=== PATIENT | male | born 1975 | race Caucasian/White ===

== ENCOUNTER 2017-04-18 09:22 | Observation (INO) | payer OTHER ==
[~2017-04-18] VITALS: Ht 170.2 cm; Wt 115.6 kg
[~2017-04-18 09:22] MED LIST: FLEXERIL 1010 MG/TAB PO; MOTRIN 200200 MG/TAB PO; MULTIPLE VITAMI1 CAP PO; NEURONTIN300 MG/CAP PO; NORCO 325 MG-101 TAB PO; TYLENOL PM EXTR1 TA1 PO
[2017-04-18] MEDS ORDERED: LYRICA 150MG C150 MG PO (09:35)
[2017-04-18] MEDS ORDERED: CYMBALTA 60MG60 MG PO (09:36)
[2017-04-18 09:47] LABS: BASO # 0.1 (0.0-0.2); BASO % 1.1 % (0.0-2.0); EOS # 1.1 (0.0-0.7); EOS % 11.9 % (0-4.0); GRAN % 42.7 % (42.2-75.2); HEMATOCRIT 39.1 % (42.0-52.0); HEMOGLOBIN 13.3 g/dl (13.5-18.0); LYMPH # 3.2 (1.2-3.4); LYMPH % 34.3 % (20.0-51.0); MEAN CELL VOLUME 89 fl (80.0-100.0); MEAN CORPUSCULAR HEMOGLOBIN 30 pg (27.0-31.0); MEAN CORPUSCULAR HGB CONC 34 g/dl (33.0-37.0); MEAN PLATELET VOLUME 9.1 fl (7.4-10.4); MONO # 0.9 (0.1-0.6); MONO % 9.8 % (1.7-9.3); PLATELET COUNT 362 K/mm3 (130-400); REDCELL DISTRIBUTION WIDTH-CV 13.9 % (11.5-14.5); WHITE BLOOD COUNT 9.3 K/mm3 (4.8-10.8)
[2017-04-18 09:56] LABS: ADJUSTED CALCIUM 8.6 mg/dL (8.4-10.2); ALANINE AMINOTRANSFERASE 105 U/L (21-72); ALBUMIN 4.5 gm/dL (3.5-5.0); ALKALINE PHOSPHATASE 104 U/L (50-136); ANION GAP 13 mmol/L (7-16); BILIRUBIN,TOTAL 0.5 mg/dL (0.0-1.0); BLOOD UREA NITROGEN 11 mg/dL (9-20); CARBON DIOXIDE 25 mmol/L (22-30); CHLORIDE 97 mmol/L (98-107); CREATININE, serum 0.88 mg/dL (0.66-1.25); GLUCOSE 123 mg/dL (74-106); MAGNESIUM 2.2 mg/dL (1.6-2.3); POTASSIUM 4.1 mmol/L (3.4-5.0); SODIUM 136 mmol/L (137-145); TOTAL PROTEIN 7.5 gm/dL (6.4-8.2)
[2017-04-18 10:13] LABS: PROLACTIN 28.4 ng/mL (3.7-17.9)
[2017-04-18 13:12] LABS: PHOSPHOROUS 3.2 mg/dL (2.5-4.5)
[2017-04-18 13:14] LABS: ACETAMINOPHEN < 10 ug/mL (10-30)
[2017-04-18 14:30] VITALS: BP 108/98; PULSE 95; TEMP 98.3
[2017-04-18 16:18] LABS: PH 5 (5-8); SQUAMOUS EPITHELIAL None Seen /hpf; URINE APPEARANCE Clear; URINE BACTERIA None Seen /hpf; URINE BILIRUBIN Negative (NEGATIVE); URINE BLOOD Negative (NEGATIVE); URINE COLOR Yellow; URINE GLUCOSE Negative (NEGATIVE); URINE KETONE Negative (NEGATIVE); URINE RBC 0-2 /hpf; URINE UROBILINOGEN Negative (NEGATIVE); URINE WBC 0-2 /hpf
[2017-04-18 16:21] LABS: AMPHETAMINE URINE NEGATIVE; BARBITURATES URINE NEGATIVE; BENZODIAZEPINES URINE POSITIVE; BUPRENORPHINE URINE NEGATIVE; METHADONE URINE NEGATIVE; OPIATES URINE NEGATIVE; OXYCODONE URINE NEGATIVE; PHENCYCLIDINE URINE NEGATIVE; PROPOXYPHENE URINE NEGATIVE; THC CANNABINOIDS URINE NEGATIVE
[2017-04-18 20:37] VITALS: BP 107/55; PULSE 85; TEMP 98
[2017-04-19 00:37] VITALS: BP 90/42; PULSE 81; TEMP 98.2
[2017-04-19 04:32] VITALS: BP 98/44; PULSE 79; TEMP 100.6
[2017-04-19 04:52] VITALS: TEMP 97.5
[2017-04-19 07:35] LABS: BASO # 0.1 (0.0-0.2); BASO % 1.3 % (0.0-2.0); EOS # 0.8 (0.0-0.7); EOS % 10.1 % (0-4.0); GRAN # 3.9 (1.4-6.5); GRAN % 49.9 % (42.2-75.2); HEMATOCRIT 39.8 % (42.0-52.0); HEMOGLOBIN 13.3 g/dl (13.5-18.0); LYMPH # 2.4 (1.2-3.4); LYMPH % 30.1 % (20.0-51.0); MEAN CELL VOLUME 91 fl (80.0-100.0); MEAN CORPUSCULAR HEMOGLOBIN 30 pg (27.0-31.0); MEAN CORPUSCULAR HGB CONC 33 g/dl (33.0-37.0); MEAN PLATELET VOLUME 9.4 fl (7.4-10.4); MONO # 0.7 (0.1-0.6); MONO % 8.3 % (1.7-9.3); PLATELET COUNT 365 K/mm3 (130-400); RED BLOOD COUNT 4.39 M/mm3 (4.20-5.60); REDCELL DISTRIBUTION WIDTH-CV 14.2 % (11.5-14.5); WHITE BLOOD COUNT 7.8 K/mm3 (4.8-10.8)
[2017-04-19 07:45] LABS: ADJUSTED CALCIUM 8.8 mg/dL (8.4-10.2); BILIRUBIN,TOTAL 0.5 mg/dL (0.0-1.0); CALCIUM 8.8 mg/dL (8.4-10.2); CREATININE, serum 0.85 mg/dL (0.66-1.25); POTASSIUM 4.1 mmol/L (3.4-5.0)
[2017-04-19 11:58] VITALS: BP 128/75; PULSE 83; TEMP 99.7
[2017-04-19 16:33] VITALS: BP 131/81; PULSE 76; TEMP 97.8
== END 2017-04-19 20:05 | disposition home or self-care (01) ==
LOC: COL.ER 09:22 → MEDICAL 12:24
PROVIDERS: Emergency Medicine; Physician Assistant
DX: G40.309 Generalized idiopathic epilepsy and epileptic syndromes, not intractable, without status epilepticus (principal); S06.0X9A Concussion with loss of consciousness of unspecified duration, initial encounter; S01.512A Laceration without foreign body of oral cavity, initial encounter; S00.03XA Contusion of scalp, initial encounter; G47.10 Hypersomnia, unspecified; M54.9 Dorsalgia, unspecified; G89.29 Other chronic pain; F43.10 Post-traumatic stress disorder, unspecified; E66.9 Obesity, unspecified; R30.0 Dysuria; R39.198 Other difficulties with micturition; R40.2412 Glasgow coma scale score 13-15, at arrival to emergency department; W22.09XA Striking against other stationary object, initial encounter
CPT/HCPCS: 99223-AI; 99239; A9585; G0378; J1650; J2060; J2405; J7030